=== PATIENT | male | born 1995 | race American Indian/Alaskan Native ===

== ENCOUNTER 2016-11-18 13:42 | Emergency (ER) | payer SELFPAY | END 2016-11-18 13:43 | disposition left against medical advice (07) | LOC: ED 13:42 | DX: R40.0 Somnolence (principal); Z53.21 Procedure and treatment not carried out due to patient leaving prior to being seen by health care provider ==

== ENCOUNTER 2017-08-24 12:50 | Emergency (ER) | payer SELFPAY ==
[2017-08-24 13:23] VITALS: BP 125/83
== END 2017-08-24 18:24 | disposition left against medical advice (07) ==
LOC: ED 12:50
DX: Z04.1 Encounter for examination and observation following transport accident (principal); Z53.21 Procedure and treatment not carried out due to patient leaving prior to being seen by health care provider; V89.2XXA Person injured in unspecified motor-vehicle accident, traffic, initial encounter; Y93.89 Activity, other specified; Y99.8 Other external cause status; Y92.410 Unspecified street and highway as the place of occurrence of the external cause

== ENCOUNTER 2017-08-24 22:16 | Emergency (ER) | payer OTHER ==
[2017-08-24] MEDS ORDERED: TYLENOL PO ONE (22:51)
[2017-08-24] MEDS ORDERED: TYLENOL ONE (22:52)
[2017-08-25] MEDS ORDERED: MOTRIN PO ONE (03:40)
[2017-08-25] MEDS ORDERED: ZOFRAN ODT PO ONE (03:43)
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
[2017-08-25 04:06] VITALS: BP 116/64
== END 2017-08-25 04:06 | disposition home or self-care (01) ==
LOC: ED 22:16
DX: M79.601 Pain in right arm (principal); G43.919 Migraine, unspecified, intractable, without status migrainosus; Z87.891 Personal history of nicotine dependence; V89.2XXA Person injured in unspecified motor-vehicle accident, traffic, initial encounter
CPT/HCPCS: 99282

== ENCOUNTER 2018-01-14 07:57 | Emergency (ER) | payer SELFPAY ==
[2018-01-14 08:03] VITALS: BP 139/93
[2018-01-14 08:50] LABS: Bacteria,Urine 1+ /HPF (Negative); Bilirubin,Urine NEG (Negative); Blood,Urine LG (Negative); Color,Urine Yellow (Yellow); Mucus,Urine FEW /HPF
[2018-01-14 08:55] LABS: RBC,Urine > 182.0 /HPF (0.0-6.0); WBC,Urine > 182.0 /HPF (0.0-6.0)
--- NOTE | 2018-01-14 09:23 | Emergency Department Report ---
ED General Adult HPI - General Chief complaint: Urogenital-Male Stated complaint: BLOOD IN URINE/BURN Time Seen by Provider: 01/14/18 09:11 Source: patient Mode of arrival: Ambulatory Limitations: No Limitations - History of Present Illness Initial comments: Patient presents to the emergency department with a chief complaint of burning with urination 2 days. Patient denies any penile discharge or concerns for STDs. Patient denies fever, abdominal pain, or chest pain. Patient has no other complaints. -: Sudden Location: genitals Radiation: non-radiation Severity scale (0 -10): 2 Quality: burning Improves with: none Worsens with: none Associated Symptoms: denies other symptoms Treatments Prior to Arrival: none - Related Data Previous Rx's Medication Instructions Recorded Last Taken Type HYDROcodone/APAP 5-325 [[place] 1 each PO Q6HR PRN #14 tablet 06/30/15 Unknown Rx 5/325] Ibuprofen [Motrin 600 MG tab] 600 mg PO Q8H PRN #30 tablet 08/25/17 Unknown Rx Phenazopyridine [Pyridium] 200 mg PO TID #6 tab 01/14/18 Unknown Rx Sulfamethoxazole/Trimethoprim 1 each PO BID #14 tablet 01/14/18 Unknown Rx [Bactrim DS TAB] Allergies Allergy/AdvReac Type Severity Reaction Status Date / Time No Known Allergies Allergy Unverified 06/30/15 16:49 ED Review of Systems ROS: Stated complaint: BLOOD IN URINE/BURN Other details as noted in HPI Comment: All other systems reviewed and negative Constitutional: denies: chills, fever Eyes: denies: eye pain, eye discharge, vision change ENT: denies: ear pain, throat pain Respiratory: denies: cough, shortness of breath, wheezing Cardiovascular: denies: chest pain, palpitations Endocrine: no symptoms reported Gastrointestinal: denies: abdominal pain, nausea, diarrhea Genitourinary: dysuria. 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 - Social History Smoking Status: Never Smoker Substance Use Type: None - Medications Home Medications: Home Medications Medication Instructions Recorded Confirmed Last Taken Type HYDROcodone/APAP 5-325 [[place] 1 each PO Q6HR PRN #14 tablet 06/30/15 Unknown Rx 5/325] Ibuprofen [Motrin 600 MG tab] 600 mg PO Q8H PRN #30 tablet 08/25/17 Unknown Rx Phenazopyridine [Pyridium] 200 mg PO TID #6 tab 01/14/18 Unknown Rx Sulfamethoxazole/Trimethoprim 1 each PO BID #14 tablet 01/14/18 Unknown Rx [Bactrim DS TAB] ED Physical Exam - General Limitations: No Limitations General appearance: alert, in no apparent distress - Head Head exam: Present: atraumatic, normocephalic - Eye Eye exam: Present: normal appearance - ENT ENT exam: Present: mucous membranes moist - Neck Neck exam: Present: normal inspection - Respiratory Respiratory exam: Present: normal lung sounds bilaterally. Absent: respiratory distress - Cardiovascular Cardiovascular Exam: Present: regular rate, normal rhythm. Absent: systolic murmur, diastolic murmur, rubs, gallop - GI/Abdominal GI/Abdominal exam: Present: soft, normal bowel sounds. Absent: distended, tenderness - Rectal Rectal exam: Present: deferred - Extremities Exam Extremities exam: Present: normal inspection - Back Exam Back exam: Present: normal inspection - Neurological Exam Neurological exam: Present: alert, oriented X3, CN II-XII intact. Absent: motor sensory deficit - Psychiatric Psychiatric exam: Present: normal affect, normal mood - Skin Skin exam: Present: warm, dry, intact, normal color. Absent: rash ED Course Vital Signs 01/14/18 08:01 Temperature 98.4 F Pulse Rate 66 Respiratory 16 Rate Blood Pressure 139/93 O2 Sat by Pulse 100 Oximetry ED Medical Decision Making - Medical Decision Making discussed results with patient Critical care attestation.: If time is entered above; I have spent that time in minutes in the direct care of this critically ill patient, excluding procedure time. ED Disposition Clinical Impression: UTI (urinary tract infection) Disposition: - TO HOME OR SELFCARE Is pt being admited?: No Does the pt Need Aspirin: No Condition: Stable Instructions: Urinary Tract Infection in Men (ED) Additional Instructions: return if worse Prescriptions: Phenazopyridine [Pyridium] 200 mg PO TID #6 tab Sulfamethoxazole/Trimethoprim [Bactrim DS TAB] 1 each PO BID #14 tablet Referrals: PRIMARY CARE, [Primary Care Provider] - 3-[address] [facility] [Outside] - 3-5 Days Time of Disposition: 09:22
== END 2018-01-14 09:30 | disposition home or self-care (01) ==
LOC: ED 07:57
DX: N39.0 Urinary tract infection, site not specified (principal)
CPT/HCPCS: 81001; 99283

== ENCOUNTER 2018-07-31 07:40 | Emergency (ER) | payer SELFPAY ==
[2018-07-31] MEDS ORDERED: MOTRIN PO ONE (07:52)
[2018-07-31] MEDS ORDERED: MOTRIN ONE (07:52)
[2018-07-31] MEDS ORDERED: TORADOL IV ONE (08:23)
[2018-07-31] MEDS ORDERED: NACL 0.9% 1000 ML 1,000 ML IV ONE (08:23)
[2018-07-31] MEDS ORDERED: ZOFRAN IV ONE (08:24)
--- NOTE | 2018-07-31 08:41 | XRay Report ---
ROUTINE CHEST, TWO VIEWS: HISTORY: Cough. The trachea, heart, mediastinal contour, lung arredondo and bony thorax are unremarkable. IMPRESSION: Unremarkable chest x-ray.
--- NOTE | 2018-07-31 09:09 | Emergency Department Report ---
Minor Respiratory - HPI Chief Complaint: Nausea/Vomiting/Diarrhea Stated Complaint: LOWER BACK PAIN/HEADACHE/FEVER/VOMITING Time Seen by Provider: 07/31/18 08:16 Duration: 2 Days Pain Location: Other (lower back) Severity: mild Minor Respiratory: Yes Cough (dry), Yes Fever (Tm 102), No Rhinorrhea, No Sore Throat, No Able to Tolerate Fluids, No Ear Pain, No Sick Contacts, No Hemoptysis, No Chest Pain, No Shortness of Breath Other History: Patient is a 22-year-old male who is presenting with 3-4 episodes of nausea vomiting dry cough and body aches. 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 - Social History Smoking Status: Current Every Day Smoker - Medications Home Medications: Home Medications Medication Instructions Recorded Confirmed Last Taken Type HYDROcodone/APAP 5-325 [[place] 1 each PO Q6HR PRN #14 tablet 06/30/15 Unknown Rx 5/325] Ibuprofen [Motrin 600 MG tab] 600 mg PO Q8H PRN #30 tablet 08/25/17 Unknown Rx Phenazopyridine [Pyridium] 200 mg PO TID #6 tab 01/14/18 Unknown Rx Sulfamethoxazole/Trimethoprim 1 each PO BID #14 tablet 01/14/18 Unknown Rx [Bactrim DS TAB] ALBUTEROL Inhaler (OR & NICU) 2 puff IH QID PRN #1 inhalation 07/31/18 Unknown Rx [ProAir HFA Inhaler] Ibuprofen [Motrin] 600 mg PO Q8H PRN #20 tablet 07/31/18 Unknown Rx Ondansetron [Zofran Odt] 4 mg PO Q8HR PRN #10 tab.rapdis 07/31/18 Unknown Rx Minor Respiratory Exam - Exam General: Vital signs noted. No distress. Alert and acting appropriately. HEENT: Yes Moist Mucous Membranes, No Pharyngeal Erythema, No Pharyngeal Exudates, No Rhinorrhea, No Conjuctival Injection, No Frontal Tenderness, No Maxillary Tenderness Ear: Neither TM Bulge, Neither TM Erythema, Neither EAC Pain, Neither EAC Discharge Neck: Yes Supple, No Adenopathy Lungs: Yes Good Air Exchange, Yes Cough, No Wheezes, No Ronchi, No Stridor, No Labored Respirations, No Retractions, No Use of Accessory Muscles, No Other Abnormal Lung Sounds Heart: Yes Regular, No Murmur Abdomen: Yes Normal Bowel Sounds, No Tenderness, No Peritoneal Signs Skin: No Rash, No Edema Neurologic: Alert and oriented, no deficits. Musculoskeletal: Unremarkable. ED Course Vital Signs 07/31/18 07:45 Temperature 102.8 F H Pulse Rate 94 H Respiratory 16 Rate Blood Pressure 128/89 O2 Sat by Pulse 99 Oximetry ED Medical Decision Making - Radiology Data Radiology results: report reviewed (CXR WNL) - Medical Decision Making Patient is a 22-year-old [place] male who is presenting with body aches cough nausea vomiting. Patient was given IV fluids and Zofran for nausea control. Chest x-ray is within normal limits and there is no evidence of a pneumonia. Patient likely with flulike syndrome. Patient be discharged home with meds for symptomatic relief. Critical care attestation.: If time is entered above; I have spent that time in minutes in the direct care of this critically ill patient, excluding procedure time. ED Disposition Clinical Impression: Flu-like symptoms Disposition: DC-01 TO HOME OR SELFCARE Is pt being admited?: No Does the pt Need Aspirin: No Condition: Stable Instructions: Influenza (ED) Time of Disposition: 09:09
[2018-07-31 09:36] VITALS: BP 126/75
== END 2018-07-31 10:06 | disposition home or self-care (01) ==
LOC: ED 07:40
DX: J11.1 Influenza due to unidentified influenza virus with other respiratory manifestations (principal); F17.200 Nicotine dependence, unspecified, uncomplicated; Z79.899 Other long term (current) drug therapy
CPT/HCPCS: 71046; 96361; 96374; 96375; 99283; J1885; J2405; J7030